=== PATIENT | female | born 1990 | race Caucasian/White ===

== ENCOUNTER 2017-08-29 10:02 | Emergency (ER) | payer MEDICAID, OTHER ==
[2017-08-29 10:02] VITALS: BMI 25.8
[2017-08-29 10:08] VITALS: TEMP 98.5
[2017-08-29] MEDS ORDERED: Sodium Chloride 0.9% 1,000 ML IV ONE (10:26)
--- NOTE | 2017-08-29 10:36 | C.PDOC ---
History Of Present Illness 27 y/o female, with no significant PMHx, presents to ED c/o upper abdominal pain associated with nausea and diarrhea. Pt reports occasional fever for the past 2 days. Denies vomiting, urinary symptoms, or other complaints at this time. LMP 08/01/17 Time Seen by Provider: 08/29/17 10:07 Chief Complaint (Nursing): Abdominal Pain History Per: Patient History/Exam Limitations: no limitations Onset/Duration Of Symptoms: Days Current Symptoms Are (Timing): Still Present Location Of Pain/Discomfort: Epigastric Radiation Of Pain To:: None Quality Of Discomfort: "Pain" Associated Symptoms: Fever, Nausea, Diarrhea. denies: Vomiting, Loss Of Appetite, Back Pain, Chest Pain, Constipation, Urinary Symptoms Exacerbating Factors: None Alleviating Factors: None Recent travel outside of the [place]: No Additional History Per: Patient Abnormal Vaginal Bleeding: No Past Medical History Reviewed: Historical Data, Nursing Documentation, Vital Signs Vital Signs: Last Vital Signs Temp 98.5 F 08/29/17 10:05 Pulse 77 08/29/17 12:55 Resp 16 08/29/17 12:55 BP 107/58 L 08/29/17 12:55 Pulse Ox 99 08/29/17 13:14 - Medical History PMH: No Chronic Diseases - [facility] Procedures ARTIF RUPT [facility]BR[facility]ES NEC (11/14/14) MANUAL ASSIST DELIV NEC (11/14/14) Family History: States: Unknown Family Hx - Social History Hx Tobacco Use: No Hx Alcohol Use: No Hx Substance Use: No - Immunization History Hx Tetanus Toxoid Vaccination: No Hx Influenza Vaccination: No Hx Pneumococcal Vaccination: No Review Of Systems Except As Marked, All Systems Reviewed And Found Negative. Constitutional: Positive for: Fever Cardiovascular: Negative for: Chest Pain Gastrointestinal: Positive for: Nausea, Abdominal Pain, Diarrhea. Negative for : Vomiting, Constipation, Melena, Hematochezia Genitourinary: Negative for: Dysuria, Frequency, Hematuria, Vaginal Discharge Musculoskeletal: Negative for: Back Pain Physical Exam - Physical Exam Appears: Non-toxic, No Acute Distress Skin: Normal Color, Warm, Dry Head: Atraumatic, Normacephalic Eye(s): bilateral: Normal Inspection Oral Mucosa: Moist Neck: Supple Chest: Symmetrical Cardiovascular: Rhythm Regular, No Murmur Respiratory: Normal Breath Sounds, No Rales, No Rhonchi, No Wheezing Gastrointestinal/Abdominal: Soft, Tenderness (epigastric), No Guarding, No Rebound Back: No CVA Tenderness Extremity: Normal ROM Neurological/Psych: Oriented x3, Normal Speech ED Course And Treatment - Laboratory Results Result Diagrams: 08/29/17 10:33 08/29/17 10:33 Lab Interpretation: Normal Urine POC: Negative O2 Sat by Pulse Oximetry: 99 Pulse Ox Interpretation: Normal Progress Note: Blood work, UA ordered and reviewed. Patient was given Pepcid, Zofran, and IV fluids. Treated with toradol 30 mg IV. On re-evaluation abdomen soft non-tender, in no distress Reassessment Condition: Improved Disposition Counseled Patient/Family Regarding: Studies Performed, Diagnosis, Need For Followup - Disposition Referrals: [facility] [Outside] [facility] [Outside] Disposition: HOME/ ROUTINE Disposition Time: 12:40 Condition: STABLE Additional Instructions: Follow up with your PMD or clinic for further evaluation Return to ED if any increase symptoms Prescriptions: Ondansetron ODT [Zofran ODT] 1 odt PO BID PRN #6 odt PRN Reason: Nausea/Vomiting Instructions: Gastroenteritis (ED), Acute Diarrhea (ED) Forms: [place] (Barbadian) Print Language: SAUDI ARABIAN - POA Present On Arrival: None - Clinical Impression Clinical Impression: Diarrhea, Nausea, Abdominal pain - 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 - Scribe Statement The provider has reviewed the documentation as recorded by the Yaniibjh Parmra All medical record entries made by the Yaniibjh were at my direction and personally dictated by me. I have reviewed the chart and agree that the record accurately reflects my personal performance of the history, physical exam, medical decision making, and the department course for this patient. I have also personally directed, reviewed, and agree with the discharge instructions and disposition.
[2017-08-29 10:39] LABS: BASO % 0.4 % (0.0-2.0); EOS # 0.1 K/uL (0.0-0.7); EOS % 0.7 % (0.0-4.0); HEMATOCRIT 38.2 % (34.0-47.0); LYMPH # 1.3 K/uL (1.0-4.3); MEAN CELL VOLUME 84.3 fL (81.0-99.0); MEAN CORPUSCULAR HEMOGLOBIN 27.7 pg (27.0-31.0); MEAN CORPUSCULAR HGB CONC 32.9 g/dL (33.0-37.0); MONO # 0.6 K/uL (0.0-0.8); MONO % 7.7 % (0.0-10.0); RED CELL DISTRIBUTION WIDTH 16.4 % (11.5-14.5); WHITE BLOOD COUNT 7.9 K/uL (4.8-10.8)
[2017-08-29] MEDS ORDERED: Sodium Chloride 0.9% 1,000 ML ONE (10:39)
[2017-08-29 10:56] LABS: RBC URINE 1 /hpf (0-3); URINE BILIRUBIN NEGATIVE (NEGATIVE); URINE BLOOD NEGATIVE (NEGATIVE); URINE COLOR Amber (YELLOW); URINE GLUCOSE (UA) NORMAL (Normal); URINE KETONE TRACE mg/dL (NEGATIVE); URINE LEUKOCYTE ESTERASE 1+ Leu/uL (Negative); URINE PROTEIN NEGATIVE (NEGATIVE); WBC URINE 2 /hpf (0-5)
[2017-08-29 11:08] LABS: ALKALINE PHOSPHATASE 71 U/L (38-126); ALT/SGPT 40 U/L (9-52); AST/SGOT 27 U/L (14-36); BILIRUBIN,TOTAL 0.5 mg/dL (0.2-1.3); BLOOD UREA NITROGEN 7 mg/dL (7-17); CALCIUM 8.3 mg/dl (8.6-10.4); CARBON DIOXIDE 26 mmol/L (22-30); CHLORIDE 100 mmol/L (98-107); GFR AFRICAN-AMERICAN > 60; GLUCOSE,RANDOM 92 mg/dL (65-105); POTASSIUM 3.7 mmol/L (3.6-5.2); SODIUM 138 mmol/L (132-148); TOTAL PROTEIN 8.1 g/dL (6.3-8.3)
[2017-08-29 12:55] VITALS: BP 107/58; PULSE 77; RESP 16
[2017-08-29 13:15] VITALS: O2SAT 99
== END 2017-08-29 13:19 | disposition home or self-care (01) ==
LOC: C.ER 10:02
DX: R10.13 Epigastric pain (principal); R19.7 Diarrhea, unspecified; R11.0 Nausea
CPT/HCPCS: 80053; 81001; 83690; 84703; 85025; 96361; 96374; 96375; 99285; J1885; J2405; J7040

== ENCOUNTER 2018-02-11 11:44 | Emergency (ER) | payer OTHER ==
[2018-02-11 11:56] VITALS: BP 102/68; PULSE 84; RESP 16; TEMP 98.3; O2SAT 99; BMI 25.0
--- NOTE | 2018-02-11 13:34 | C.PDOC ---
History Of Present Illness 27 y/o female currently 14 weeks presents to ED with c/o headache, body aches, cough, nose congestion with associated nose bleeding for 1 week. Patient reports sore throat and states she has not taken medication for symptoms. Patient denies vaginal bleeding, fever, nausea, vomiting or any other complaints at this time. Time Seen by Provider: 02/11/18 12:54 Chief Complaint (Nursing): Cough, Cold, Congestion History Per: Patient History/Exam Limitations: no limitations Onset/Duration Of Symptoms: Days Current Symptoms Are (Timing): Still Present Associated Symptoms: Sore Throat, Cough, Nasal Congestion. denies: Fever, Chills Past Medical History Reviewed: Historical Data, Nursing Documentation, Vital Signs Vital Signs: Last Vital Signs Temp 98.3 F 02/11/18 11:56 Pulse 84 02/11/18 11:56 Resp 16 02/11/18 11:56 BP 102/68 02/11/18 11:56 Pulse Ox 99 02/11/18 14:48 - Medical History PMH: No Chronic Diseases Surgical History: No Surg Hx - [facility] Procedures ARTIF RUPT [facility]ES NEC (11/14/14) MANUAL ASSIST DELIV NEC (11/14/14) Family History: States: No Known Family Hx - Social History Hx Tobacco Use: No Hx Alcohol Use: No Hx Substance Use: No - Immunization History Hx Tetanus Toxoid Vaccination: No Hx Influenza Vaccination: Yes Hx Pneumococcal Vaccination: No Review Of Systems Constitutional: Negative for: Fever, Chills ENT: Positive for: Nose Congestion, Throat Pain Cardiovascular: Negative for: Chest Pain Respiratory: Positive for: Cough Gastrointestinal: Negative for: Nausea, Vomiting Genitourinary: Negative for: Vaginal Bleeding Neurological: Positive for: Headache Physical Exam - Physical Exam Appears: Non-toxic, No Acute Distress Skin: Warm, Dry, No Rash Head: Atraumatic, Normacephalic Eye(s): bilateral: Normal Inspection Ear(s): Bilateral: Normal Oral Mucosa: Moist Throat: Normal, No Erythema, No Exudate Neck: Normal ROM, Supple Cardiovascular: Rhythm Regular Respiratory: Normal Breath Sounds, No Rales, No Rhonchi, No Wheezing Gastrointestinal/Abdominal: Soft, No Tenderness, No Guarding, No Rebound Neurological/Psych: Oriented x3, Normal Speech, Normal Cognition ED Course And Treatment O2 Sat by Pulse Oximetry: 99 (RA) Pulse Ox Interpretation: Normal Progress Note: Tylenol administered. Flu swab ordered Disposition Counseled Patient/Family Regarding: Studies Performed, Diagnosis - Disposition Referrals: [facility] [Outside] Disposition: HOME/ ROUTINE Disposition Time: 14:39 Condition: STABLE Additional Instructions: Take Tylenol for pain. Return to the Emergency Department if you develop fever. Use nasal saline to clear your nose. Honey, [place] mix and/or tea for your throat. Instructions: Viral Syndrome (DC) Forms: Work Excuse, [facility] ([place]ig), Gen Discharge Inst [place] - POA Present On Arrival: None - Clinical Impression Clinical Impression: Influenza-like illness, - Scribe Statement The provider has reviewed the documentation as recorded by the Scribjh Vasquez All medical record entries made by the Yaniibjh were at my direction and personally dictated by me. I have reviewed the chart and agree that the record accurately reflects my personal performance of the history, physical exam, medical decision making, and the department course for this patient. I have also personally directed, reviewed, and agree with the discharge instructions and disposition.
== END 2018-02-11 15:06 | disposition home or self-care (01) ==
LOC: C.ER 11:44
DX: O26.892 Other specified pregnancy related conditions, second trimester (principal); J11.1 Influenza due to unidentified influenza virus with other respiratory manifestations; Z3A.14 14 weeks gestation of pregnancy

== ENCOUNTER 2018-05-29 12:20 | Emergency (ER) | payer OTHER ==
[2018-05-29 12:57] VITALS: BMI 29.2
[2018-05-29 13:24] LABS: URINE CLARITY Clear (Clear); URINE COLOR STRAW (YELLOW)
[2018-05-29 13:25] LABS: PH,URINE 6.5 (5.0-8.0); URINE BILIRUBIN NEGATIVE (NEGATIVE); URINE BLOOD NEGATIVE (NEGATIVE); URINE GLUCOSE (UA) NEGATIVE (Normal); URINE LEUKOCYTE ESTERASE NEGATIVE Leu/uL (Negative); URINE PROTEIN NEGATIVE (NEGATIVE); URINE UROBILINOGEN 0.2 mg/dL (0.2-1.0)
--- NOTE | 2018-05-29 14:30 | OBHP ---
Datetime: 05/29/2018 13:04 IP Adm Impression: , intrauterine IP Admit Plan: Observation/Evaluation Admit Comment, IP Provider: 28 yo female with an IUP at 31.4 weeks C/O of Suprapubic pains while at work on her feet. Denies Urinary symptoms Drinks plenty of water. Pelvic Type - PN: Adequate Extremities - PN: Normal Abdomen - PN: Normal Back - PN: Normal Breast - PN: Not Done Lungs - PN: Normal Heart - PN: Normal Thyroid - PN: Normal Neurologic - PN: Normal HEENT - PN: Normal General - PN: Normal Presentation-Admit: Vertex FHR - Baseline A Provider: 130 Membranes, Provider: Intact Contraction Comments Provider: None Gestation - Est Wks by US: 31.4 EGA AdmitDate IP: 31.4 Vital Signs Provider: Reviewed IP Chief Complaint: Signs/symptoms UTI; Maternal discomfort; evaluation NICHD Variability Prov Fetus A: Moderate 6-25bpm NICHD Accel Fetus A IP Provider: 10X10 FHR Category Provider Fetus A: Category I NICHD Decel Fetus A IP Provider: None Dilatation, Provider: 0 Effacement, Provider: 0 Station, Provider: -3 Genitourinary Exam: Normal DTRs - PN: Normal
[2018-05-30 15:11] VITALS: BP 97/64; PULSE 89
== END 2018-05-29 14:03 | disposition home or self-care (01) ==
LOC: C.EROB 12:20
DX: O26.893 Other specified pregnancy related conditions, third trimester (principal); R10.30 Lower abdominal pain, unspecified; Z3A.31 31 weeks gestation of pregnancy

== ENCOUNTER 2018-08-15 07:21 | Inpatient (IN) | payer MEDICAID, OTHER ==
[2018-08-15 09:16] LABS: BASO % 0.5 % (0.0-2.0); EOS # 0.1 K/uL (0.0-0.7); EOS % 2.5 % (0.0-4.0); HEMOGLOBIN 11.2 g/dL (11.0-16.0); LYMPH # 1.1 K/uL (1.0-4.3); LYMPH % 25.6 % (20.0-40.0); MEAN CORPUSCULAR HEMOGLOBIN 30.9 pg (27.0-31.0); MEAN CORPUSCULAR HGB CONC 34.4 g/dL (33.0-37.0); MEAN PLATELET VOLUME 10.5 fL (7.2-11.7); MONO # 0.2 K/uL (0.0-0.8); MONO % 5.6 % (0.0-10.0); NEUT # 2.9 K/uL (1.8-7.0); NEUT % 65.8 % (50.0-75.0); RBC 3.63 Mil/uL (3.80-5.20); WHITE BLOOD COUNT 4.4 K/uL (4.8-10.8)
[2018-08-15] MEDS ORDERED: Oxytocin 30 UNIT 30 UNITS/500 ML BAG IV ONE ×2 (09:21→20:59)
[2018-08-15] MEDS ORDERED: Lactated Ringer's 1,000 ML IV ONE (09:21)
[2018-08-15 09:26] LABS: SQUAMOUS EPITHIAL 32 /hpf (0-5); URINE BACTERIA RARE (<OCC); URINE BILIRUBIN NEGATIVE (NEGATIVE); URINE BLOOD 1+ (NEGATIVE); URINE CLARITY Hazy (Clear); URINE COLOR Yellow (YELLOW); URINE GLUCOSE (UA) NORMAL (Normal); URINE LEUKOCYTE ESTERASE 3+ Leu/uL (Negative); URINE PROTEIN NEGATIVE (NEGATIVE)
[2018-08-15 09:28] LABS: MEAN CELL VOLUME 89.9 fL (81.0-99.0)
[2018-08-15] MEDS ORDERED: Lactated Ringer's 1,000 ML IV SCH (09:30)
[2018-08-15 09:31] LABS: ALT/SGPT 35 U/L (9-52); AST/SGOT 31 U/L (14-36); BLOOD UREA NITROGEN 8 mg/dL (7-17); CALCIUM 8.1 mg/dl (8.6-10.4); GFR NON-AFRICAN AMERICAN > 60
[2018-08-15 10:06] LABS: HEPATITIS A IGM NEGATIVE (NEGATIVE); HEPATITIS B CORE AB NEGATIVE (NEGATIVE)
[2018-08-15 10:18] LABS: HEPATITIS C ANTIBODY NEGATIVE (NEGATIVE)
[2018-08-15] MEDS ORDERED: Oxytocin 30 UNIT 30 UNITS/500 ML BAG IV SCH (12:00)
[2018-08-15 13:57] LABS: HEPATITIS B SURFACE AG Reactive (NEGATIVE)
[2018-08-15 14:00] LABS: HEP B SURFACE AG CONF CONFIRMED POSITIVE
[2018-08-15] MEDS ORDERED: Fentanyl/Bupivacaine HCl 250 ML EPI ONE (14:55)
--- NOTE | 2018-08-15 17:44 | OBADHP ---
Datetime: 08/15/2018 10:51 Admit Comment, IP Provider: 28 yo female with an IUP at 41.2 weeks and admitted for IOL for postdates. Denies LOF, VB or VD and admits to adequate FM Seen at [facility] for weekly BPP's for LGA and postdates. Las US for Growth on 07/30 with EFW 9.2 lbs an d normal KATARINA/ BPP / on 08/14, per report PMHx + Hep B and A, per prenatals and Varicella non-Immune PSHx Denies Meds PNV NKDA Social Hx Negative x 3 Past OB Hx: 2 's without complications. Last one w 8lbs 9oz at [facility] A/P Posterm Admitted for IOL LGA Will admit and start Pitocin for IOL GBS Negtive Pelvic Type - PN: Adequate Extremities - PN: Normal Abdomen - PN: Normal Back - PN: Normal Breast - PN: Not Done Lungs - PN: Normal Heart - PN: Normal Thyroid - PN: Normal Neurologic - PN: Normal HEENT - PN: Normal General - PN: Normal FHR - Baseline A Provider: 130 Membranes, Provider: Intact Contraction Comments Provider: Irregular Comments, ACOG Physical Exam: FH 40 cms Gestation - Est Wks by US: 41.2 IP Hx Assessment: The History has been Reviewed and is Current Vital Signs Provider: Reviewed; Within Normal Limits IP Chief Complaint: Uterine contractions; Scheduled induction of labor NICHD Variability Prov Fetus A: Moderate 6-25bpm NICHD Accel Fetus A IP Provider: 10X10 FHR Category Provider Fetus A: Category I NICHD Decel Fetus A IP Provider: None Dilatation, Provider: 3 Effacement, Provider: 50 Station, Provider: -3 Genitourinary Exam: Normal DTRs - PN: Normal EGA AdmitDate IP: 41.2 IP Adm Impression: Postterm, intrauterine ; Intact Membranes IP Admit Plan: Admit to unit; Initiate labor induction protocol Datetime: 08/15/2018 08:20 Presentation-Admit: Vertex Pool Provider: Negative
--- NOTE | 2018-08-15 17:54 | OBPN ---
Datetime: 08/15/2018 15:48 IP Progress Impression: Normal progression of labor; Reassuring heart rate IP Informed Consent Obtain: Vaginal Delivery IP Procedures: Artificial ROM; Sterile Vag Exam IP Progress Plan: Continue present management; Induction Membranes, Provider: Ruptured Amniotic Fluid Color, Provider: Clear Contraction Comments Provider: 2-3 mins FHR - Baseline A Provider: 130 Gestation - Est Wks by US: 41.2 Presentation-Admit: Vertex IP Progress Note Comment: Pt seen and examined Epidural in place and working well. Pt very comfortable AROM performed with return of clear fluid Will restart Ptocin All admit labs reviewed and Essentially WNL Anticipate a vaginal delivery tracing reassuring Vital Signs Provider: Reviewed; Within Normal Limits NICHD Accel Fetus A IP Provider: 10X10 NICHD Variability Prov Fetus A: Moderate 6-25bpm Dilatation, Provider: 5 Effacement, Provider: 75 Station, Provider: -3 NICHD Decel Fetus A IP Provider: None Datetime: 08/15/2018 10:51 FHR Category Provider Fetus A: Category I Datetime: 08/15/2018 08:20 Pool Provider: Negative
[2018-08-15] MEDS ORDERED: Lidocaine 2% MPF (5 ml) Inj ONE (19:17)
[2018-08-15] MEDS ORDERED: Oxytocin 10 Units/ml Inj ONE ×2 (20:27→22:02)
--- NOTE | 2018-08-15 20:42 | OBDS ---
DELIVERY PERSONNEL Delivery Doctor: Lindsey Tucker DO Adjunct Professor Of Voice: Karina Pichardo RN Anesthesiologist: Tessie Payan MD MATERNAL INFORMATION Delivery Anesthesia: Epidural Estimated Blood Loss (ml): 300 Placenta Cultured: No Maternal Complications: None Provider Comments: of viable male from PATTI positiion and over an intact perineum. Apgars 9_9, BW 11.02 lbs, 4995 grams. EBL 300 mls Placenta and cord blood sent to lab Pt and both tolerated the procedure well and remained in L_D in S_S condition LABOR SUMMARY EDC: 08/06/2018 00:00 No. Babies in Womb: 1 Attempted: No Labor Anesthesia: Epidural LABOR INFORMATION Reason for Induction: Postterm Onset of Labor: 08/15/2018 08:30 Complete Dilatation: 08/15/2018 19:55 Oxytocin: Augmentation Steroids Given: None Reason Steroids Not Administered: Not Applicable MEMBRANES Membranes Rupture Method: Artificial Amniotic Fluid Color: Clear Amniotic Fluid Amount: Moderate STAGES OF LABOR Stage 1 hrs: 11 Stage 1 min: 25 Stage 2 hrs: 0 Stage 2 min: 10 Stage 3 hrs: 0 Stage 3 min: 6 Total Time in Labor hrs: 11 Total Time in Labor min: 41 VAGINAL DELIVERY Episiotomy: None Laceration Extension: N/A Laceration Type: None Laceration Repair: Not Applicable Sponge Count Correct: Yes Sharps Count Correct: Yes BABY A INFORMATION Infant Delivery Date/Time: 08/15/2018 20:05 Method of Delivery: Vaginal Born in Route : No : N/A Forceps: N/A Vacuum Extraction: N/A Shoulder Dystocia : No SHOULDER DYSTOCIA BABY A Delivery Date/Time: 08/15/2018 20:05 PRESENTATION/POSITION BABY A Presentation: Cephalic Cephalic Presentation: Vertex Vertex Position: Right Occipital Anterior Breech Presentation: N/A PLACENTA INFORMATION BABY A Placenta Delivery Time : 08/15/2018 20:11 Placenta Method of Delivery: Spontaneous Placenta Status: Delivered SCORES BABY A Heart Rate 1 min: >100 bpm Resp Effort 1 min: Good Cry Reflex Irritability 1 min: Cough or Sneeze or Pulls Away Muscle Tone 1 min: Active Motion Color 1 min: Body [place], Extremities Blue Resuscitation Effort 1 min: Tactile Stimulation SCORE 1 MIN: 9 Heart Rate 5 min: >100 bpm Resp Effort 5 min: Good Cry Reflex Irritability 5 min: Cough or Sneeze or Pulls Away Muscle Tone 5 min: Active Motion Color 5 min: Completely [place] Resuscitation Effort 5 min: N/A SCORE 5 MIN: 10 INFANT INFORMATION BABY A Gestational Age at Delivery: 41.2 Gestational Status: Term Outcome : Liveborn Condition : STABLE Sex: Male IDENTIFICATION/MEDS BABY A ID Band Number: [id number] ID Band Location: Left Leg; Left Arm Sensor Applied: Yes Sensor Location : Cord Clamp WEIGHT/LENGTH BABY A Birthweight (gms): 4995 Infant Weight (lb): 11 Infant Weight (oz): 0 Infant Length Inches: 22.00 Length cms: 55.9 CORD INFORMATION BABY A No. Cord Vessels: 3 Nuchal Cord : N/A
[2018-08-15] MEDS ORDERED: Oxycodone/Acetaminophen 5/325 mg Tab PO PRN ×2 (20:59)
[2018-08-16 08:58] LABS: BASO % 0.4 % (0.0-2.0); EOS % 0.2 % (0.0-4.0); LYMPH # 1.2 K/uL (1.0-4.3); LYMPH % 10.6 % (20.0-40.0); MEAN CELL VOLUME 89.5 fL (81.0-99.0); MEAN CORPUSCULAR HEMOGLOBIN 30.5 pg (27.0-31.0); MEAN CORPUSCULAR HGB CONC 34.1 g/dL (33.0-37.0); MEAN PLATELET VOLUME 10.3 fL (7.2-11.7); MONO # 0.6 K/uL (0.0-0.8); MONO % 5.1 % (0.0-10.0); NEUT # 9.7 K/uL (1.8-7.0); NEUT % 83.7 % (50.0-75.0); RBC 3.6 Mil/uL (3.80-5.20); RED CELL DISTRIBUTION WIDTH 14.8 % (11.5-14.5); WHITE BLOOD COUNT 11.6 K/uL (4.8-10.8)
--- NOTE | 2018-08-16 09:31 | OBPPN ---
Datetime: 08/16/2018 07:20 PP Pain Prov: Within normal limits PP Nausea Prov: Denies PP Flatus Prov: No PP BM Prov: No PP Heart Prov: Normal PP Lungs Prov: Normal PP Abdomen/Uterus Prov: Normal PP Lochia Prov: Normal PP Vulva/Perineum Prov: Normal PP CVA Tenderness Prov: Normal PP Extremities Prov: Normal PP C/S Incision Prov: Not Applicable PP Progress Prov: Normal PP Comments Phys Exam Prov: Gen: patient in bed in NAD Heart: S1, S2, RRR Chest: CTA b/l. No wheezing Abd: soft, +BS, appropriate tender to palpate, surgical incision clean, no erythema, no swelling, no discahrge. Fundal height at one finger above the level of umbilicus Ext: peripheral pulses palpable, no edema, no cyanosis PP Impression Prov: Normal progression PP Plan Prov: Continue present management PP Progress Note Prov: Patient seen and examined at bedside. 28 y/o s/p at 41.2 GA. Gave to 11.02 LB male Tolerating her regular diet. Ambulating in her room. Moderate abdominal pain but did not ask for p ain med. Vaginal bleeding moderate. Denied fever, chills, chest pain, SOB, nausea, vomiting. Patient is breast feeding but uses formula sometimes. Vitals are stable. Baby is doing well. A/P: 28 y/o s/p at 41.2 GA Normal PP progression Stable and Satisfactory condition and Recovery Advance care counseling Encourage Incentive spirometry Pain management, encourage ambulation and hydration Case reviewed and discussed with attending Dr Bharathi Cameron DO, PGY1 Pt seen and examined at the bedside with residents/medical students. Pt doing well. Anticipate dis charge home 08/17/18. Arminda Garvin D.O. IP PP Procedures: None Vital Signs Provider PP: Reviewed; Within Normal Limits
[2018-08-16] MEDS: Multiple Vitamins Tab PO SCH (10:01)
[2018-08-17 00:41] VITALS: RESP 20
[2018-08-17 07:33] VITALS: PULSE 58; TEMP 98; O2SAT 100
[2018-08-17] MEDS: Multiple Vitamins Tab PO SCH (09:49)
--- NOTE | 2018-08-17 11:22 | OBPPN ---
Datetime: 08/17/2018 11:15 PP Pain Prov: Within normal limits PP Nausea Prov: Denies PP Breasts Prov: Not Done PP Heart Prov: Normal PP Lungs Prov: Normal PP Abdomen/Uterus Prov: Normal PP Lochia Prov: Normal PP Vulva/Perineum Prov: Normal PP CVA Tenderness Prov: Normal PP Extremities Prov: Normal PP C/S Incision Prov: Not Applicable PP Progress Prov: Abnormal PP Comments Phys Exam Prov: Fundus below Umbilicus and non-tender PP Impression Prov: Normal progression; difficulties PP Plan Prov: Continue present management PP Progress Note Prov: PPD # 2 S/P of viable Male Does not want circumcision and will show how to pull back the forskin for Hygiene VSS Afebrirle Eating, voiding and ambulating OK Will Discharge home later today. Baby under lights IP PP Procedures: None Vital Signs Provider PP: Reviewed; Within Normal Limits
[2018-08-17] MEDS ORDERED: Influenza Vaccine 60 MCG/0.5 ML SYR (3 yr & up) IM ONE (12:53)
--- NOTE | 2018-08-17 13:31 | OBDCSUM ---
Datetime: 08/17/2018 13:25 Discharged to, Provider: Home Follow up at, Provider: Clinic Disch Instr Activity: Normal activity Disch Instr Diet: Regular Discharge Instructions, Provider: Routine instructions given Discharge Diagnosis, Provider: Term Delivered; Postterm Discharge Time: 08/17/2018 14:00 Follow up in weeks, Provider: 4-6 weeks or prn Disch Referrals: None Contraception discussed, Prov: Yes Disch Activity Restrictions: No exercising; No lifting; Minimize stair-climbing; No sexual activity; Nothing in vagina - [place], tampons, douche Discharge Comment, Provider: PPD # 2 S/P of viable Male Does not want circumcision and will show how to pull back the forskin for Hygiene VSS Afebrirle Eating, voiding and ambulating OK Will Discharge home with instructions and Rx for motrin for pain Advised to increase po water intake and fiber in diet Continue pelvic rest x 6-8 weeks Discharge Diagnosis Prov Other: + Hep A_B Mild Acute Anemia Asymptomatic Contraception after Delivery: Undecided
[2018-08-17 20:37] VITALS: BP 105/72
== END 2018-08-17 16:30 | disposition home or self-care (01) | DRG 560 ==
LOC: C.EROB 07:21 → C.4D 08:00 → C.4M 23:25
PROVIDERS: ADMIT Obstetrics & Gynecology; ATTEND Obstetrics & Gynecology
PROC: 10E0XZZ Delivery of Products of Conception, External Approach (ICD-10-PCS; principal; 2018-08-15)
PROC: 10907ZC Drainage of Amniotic Fluid, Therapeutic from Products of Conception, Via Natural or Artificial Opening (ICD-10-PCS; 2018-08-15)
PROC: 3E0P7VZ Introduction of Hormone into Female Reproductive, Via Natural or Artificial Opening (ICD-10-PCS; 2018-08-15)
DX: O48.0 Post-term pregnancy (principal); O98.42 Viral hepatitis complicating childbirth; B15.9 Hepatitis A without hepatic coma; D64.9 Anemia, unspecified; O36.63X0 Maternal care for excessive fetal growth, third trimester, not applicable or unspecified; O99.02 Anemia complicating childbirth; Z3A.41 41 weeks gestation of pregnancy; Z37.0 Single live birth